=== PATIENT | female | born 1935 | race Caucasian/White ===

== ENCOUNTER → 2016-11-20 | Outpatient (CLI) | payer MEDICARE ==
[~2016-11-20] MED LIST: ALIS1TAB PO; ATEN50TA41 PO; ENAL10TA PO; EZET10TA3 PO; OMEG1CAP2 PO
== END | disposition home or self-care (01) ==
LOC: RAD 13:42 → EDSTATUS 13:45
PROVIDERS: ATTEND Physical Medicine & Rehabilitation
DX: M51.36 Other intervertebral disc degeneration, lumbar region (principal); M12.88 Other specific arthropathies, not elsewhere classified, other specified site; M48.07 Spinal stenosis, lumbosacral region
CPT/HCPCS: 72148

== ENCOUNTER 2018-01-05 16:40 | Emergency (ER) | payer MEDICARE ==
[~2018-01-05] VITALS: Ht 165.1 cm; Wt 74.9 kg
[~2018-01-05 16:40] MED LIST changes: +ASPI-515 PO; +CHOL400C PO; +EZET10TA18 PO; -EZET10TA3 PO; +PANT40TA5 PO; +SPIR25TA5 PO
[2018-01-05] MEDS ORDERED: SODIUM CHLORIDE FLUSH 10ML SYR IVF ONE (17:00)
[2018-01-05 18:25] LABS: BASOPHILS # (AUTO) 0.03 x10^3/uL (0-0.1); BASOPHILS % (AUTO) 1 % (0-1); EOSINOPHILS # (AUTO) 0.09 x10^3/uL (0-0.4); EOSINOPHILS % (AUTO) 2 % (1-7); LYMPHOCYTES # (AUTO) 1.68 x10^3/uL (1-3.4); LYMPHOCYTES % (AUTO) 32 % (22-44); MD NO; MEAN CORPUSCULAR HEMOGLOBIN 31.7 pg (27.0-34.8); MEAN CORPUSCULAR HGB CONC 33.5 g/dL (32.4-35.8); MEAN CORPUSCULAR VOLUME 94.4 fL (80-100); MEAN PLATELET VOLUME 7.5 fL (7.4-10.4); MONOCYTES # (AUTO) 0.31 x10^3/uL (0.2-0.8); MONOCYTES % (AUTO) 6 % (2-9); NEUTROPHILS # (AUTO) 3.22 x10^3/uL (1.8-6.8); NEUTROPHILS % (AUTO) 60 % (42-75); PLATELET COUNT 189 x10^3/uL (130-400); RED BLOOD COUNT 4.16 x10^6/uL (3.82-5.3); RED CELL DISTRIBUTION WIDTH 12.9 % (9.6-15.2)
[2018-01-05 18:28] LABS: ALBUMIN 3.8 g/dL (3.4-5.0); ANION GAP 8 mmol/L (5-15); CALCIUM 8.8 mg/dL (8.5-10.1); CHLORIDE 99 mmol/L (98-107); CREATININE 0.46 mg/dL (0.55-1.02)
[2018-01-05 18:33] LABS: TROPONIN I < 0.015 ng/mL (0.000-0.045)
[2018-01-05] MEDS ORDERED: LABETALOL 5MG/ML, 20ML IVPush ONE (19:00)
[2018-01-05] MEDS ORDERED: ACETAMINOPHEN 500 MG TABLET PO ONE (19:00)
[2018-01-05] MEDS ORDERED: PROCHLORPERAZINE 5 MG/ML, 2ML IVPush ONE (19:00)
[2018-01-05] MEDS ORDERED: LABETALOL 5MG/ML, 20ML ONE (19:03)
[2018-01-05] MEDS ORDERED: PROCHLORPERAZINE 5 MG/ML, 2ML ONE (19:03)
[2018-01-05] MEDS ORDERED: ACETAMINOPHEN 500 MG TABLET ONE (19:03)
[2018-01-05 21:09] VITALS: BP 188/79
== END 2018-01-05 21:17 | disposition home or self-care (01) ==
LOC: ED 21:09
DX: I16.9 Hypertensive crisis, unspecified (principal); R51 Headache
CPT/HCPCS: 36415; 71046; 80048; 82040; 83880; 84484; 85025; 93005; 96374; 96375; 99285; J0780

== ENCOUNTER 2018-08-25 16:26 | Inpatient (IN) | payer MEDICARE ==
[~2018-08-25] VITALS: Ht 165.1 cm; Wt 85.6 kg
--- NOTE | 2018-08-25 17:00 | NUR ---
LAB UNABLE TO OBTAIN NON HEMOLYZED SAMPLE. BASKETBALL REFEREE TO DRAW W/ IV PLACEMENT SHORTLY
--- NOTE | 2018-08-25 17:29 | NUR ---
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 REPORTS FEELING MORE FATIGUED/INCREASING RIGHT HIP PAIN. FOUND TO BE IN AFIB BY PCP AND SENT HERE. ALERT/ORIENT W/ GOOD ENERGY. HR NOTED TO BE 115-150. BP 176/99. DENIES SOB. NO BLOOD THINNER/NEVER BEEN IN AN ARRYTHMIA BEFORE. LINE PLACED TO GIVE DILT DOSE SHORTLY
[2018-08-25] MEDS ORDERED: DILTIAZEM 5 MG/ML, 5ML IVPush ONE (17:30)
[2018-08-25] MEDS ORDERED: DILTIAZEM 5 MG/ML, 10ML ONE (17:42)
[2018-08-25 17:43] LABS: BASOPHILS # (AUTO) 0.03 x10^3/uL (0-0.1); BASOPHILS % (AUTO) 1 % (0-1); EOSINOPHILS # (AUTO) 0.13 x10^3/uL (0-0.4); EOSINOPHILS % (AUTO) 3 % (1-7); LYMPHOCYTES # (AUTO) 1.35 x10^3/uL (1-3.4); LYMPHOCYTES % (AUTO) 29 % (22-44); MD NO; MEAN CORPUSCULAR HEMOGLOBIN 28.2 pg (27.0-34.8); MEAN CORPUSCULAR HGB CONC 32.2 g/dL (32.4-35.8); MEAN CORPUSCULAR VOLUME 87.6 fL (80-100); MEAN PLATELET VOLUME 8.5 fL (7.4-10.4); MONOCYTES # (AUTO) 0.31 x10^3/uL (0.2-0.8); MONOCYTES % (AUTO) 7 % (2-9); NEUTROPHILS # (AUTO) 2.79 x10^3/uL (1.8-6.8); NEUTROPHILS % (AUTO) 60 % (42-75); PLATELET COUNT 184 x10^3/uL (130-400); RED BLOOD COUNT 4.18 x10^6/uL (3.82-5.3); RED CELL DISTRIBUTION WIDTH 15.3 % (9.6-15.2)
[2018-08-25 17:52] LABS: ALBUMIN 3.8 g/dL (3.4-5.0); ANION GAP 7 mmol/L (5-15); CALCIUM 8.8 mg/dL (8.5-10.1); CHLORIDE 105 mmol/L (98-107)
--- NOTE | 2018-08-25 17:54 | NUR ---
IMMEDIATE RESOLUTION IN VENTRICULAR RATE FROM DILTAZEM, HR 55-76, BP 110/60
[2018-08-25 17:59] LABS: ALANINE AMINOTRANSFERASE 16 U/L (12-78); ALKALINE PHOSPHATASE 68 U/L (45-117); BILIRUBIN,TOTAL 0.5 mg/dL (0.2-1.0); CREATININE 0.57 mg/dL (0.55-1.02); TOTAL PROTEIN 6.9 g/dL (6.4-8.2); TROPONIN I < 0.015 ng/mL (0.000-0.045)
[2018-08-25] MEDS ORDERED: METO50TA4 PO (18:07)
[2018-08-25] MEDS ORDERED: METO25TA91 PO (18:07)
[2018-08-25] MEDS ORDERED: ROSU5TAB PO ×2 (18:07→18:49)
[2018-08-25] MEDS ORDERED: ATOR10TA9 PO (18:07)
[2018-08-25] MEDS ORDERED: LEVO75TA PO (18:07)
[2018-08-25 18:49] LABS: CULTURE INDICATED? YES; MICROSCOPIC INDICATED
--- NOTE | 2018-08-25 18:55 | NUR ---
REPEAT ECG OBTAINED 367J
--- NOTE | 2018-08-25 19:02 | NUR ---
PATIENT REMAINS OUT OF AFIB, BP 116/75, HR 58. UP Walking down morrison to restroom without difficulty. hospitalist at bedside. Moved onto hospital bed. call godfrey in hand/side rails up. placed in hospital socks. remains on monitor
[2018-08-25] MEDS ORDERED: DILTIAZEM 5 MG/ML, 5ML IVPush PRN (19:30)
[2018-08-25] MEDS ORDERED: ONDANSETRON 2MG/ML, 2ML IVPush PRN (19:30)
[2018-08-25 19:58] LABS: FREE T4 (FREE THYROXINE) 1.3 ng/dL (0.76-1.46); THYROID STIMULATING HORMONE 1.58 mIU/L (0.358-3.740)
[2018-08-25] MEDS ORDERED: CEFTRIAXONE PMX 1GM/50ML 50 ML IV SCH (20:00)
--- NOTE | 2018-08-25 20:17 | NUR ---
PATIENT REMAIN IN VENTRICULAR SINUS RHYTHM, MULTIPLE P WAVES STILL NOTES (HR 50-70), BP WNL. HAS NEEDED TO VOID 3 TIMES IN THE LAST HOUR. HAS BEEN AMBULATING DOWN THE [place]ITT WITH WALKER TO RESTROOM WITHOUT ANY TROUBLE. ON TOLL COLLECTOR, IN HOSPITAL BED WITH CALL PAREDES IN HAND. sON AT BEDSIDE. UPDATED ON POC. TO ADMINISTER ABX SHORTLY
[2018-08-25] MEDS ORDERED: ENOXAPARIN 80 MG/0.8 ML ONE (20:21)
[2018-08-25] MEDS ORDERED: CEFTRIAXONE PMX 1GM/50ML 50 ML ONE (20:22)
[2018-08-25] MEDS: ENOXAPARIN 80 MG/0.8 ML SQ SCH (20:29)
[2018-08-25] MEDS ORDERED: ACETAMINOPHEN 325 MG TABLET PO PRN (21:00)
--- NOTE | 2018-08-25 21:18 | NUR ---
pt ambulated to , now rest on gurney, monitors in place, siderails up x2, call light within reach. pt denies needs at this time, awaiting room for transfer at this time
[2018-08-25 22:31] VITALS: BP 167/80
[2018-08-25 23:28] VITALS: BP 135/84
[2018-08-25] MEDS ORDERED: hydrALAzine 20 MG/ML, 1ML IV PRN (23:30)
[2018-08-25] MEDS ORDERED: MAGNESIUM SULFATE PMX 2GM/50ML 50 ML IV ONE (23:30)
[2018-08-26 00:31] VITALS: BP 131/78
[2018-08-26 05:56] VITALS: BP 133/84
[2018-08-26 06:00] LABS: BASOPHILS # (AUTO) 0.04 x10^3/uL (0-0.1); BASOPHILS % (AUTO) 1 % (0-1); EOSINOPHILS # (AUTO) 0.16 x10^3/uL (0-0.4); EOSINOPHILS % (AUTO) 4 % (1-7); LYMPHOCYTES # (AUTO) 1.81 x10^3/uL (1-3.4); LYMPHOCYTES % (AUTO) 43 % (22-44); MD NO; MEAN CORPUSCULAR HEMOGLOBIN 29.7 pg (27.0-34.8); MEAN CORPUSCULAR HGB CONC 34.1 g/dL (32.4-35.8); MEAN CORPUSCULAR VOLUME 87.2 fL (80-100); MEAN PLATELET VOLUME 8.4 fL (7.4-10.4); MONOCYTES # (AUTO) 0.39 x10^3/uL (0.2-0.8); MONOCYTES % (AUTO) 9 % (2-9); NEUTROPHILS # (AUTO) 1.82 x10^3/uL (1.8-6.8); NEUTROPHILS % (AUTO) 43 % (42-75); PLATELET COUNT 164 x10^3/uL (130-400); RED BLOOD COUNT 3.94 x10^6/uL (3.82-5.3); RED CELL DISTRIBUTION WIDTH 15.2 % (9.6-15.2)
[2018-08-26] MEDS ORDERED: MAGNESIUM SULFATE 1 GM in SODIUM CHLORIDE 0.9% 50 ML IV ONE (06:00)
[2018-08-26] MEDS ORDERED: LEVOTHYROXINE 75 MCG TABLET PO SCH (06:00)
[2018-08-26] MEDS ORDERED: PANTOPROZOLE 40MG TABLET PO SCH (06:00)
[2018-08-26] MEDS ORDERED: METOPROLOL TARTRATE 25 MG TABLET PO SCH (06:00)
[2018-08-26 06:08] LABS: CHLORIDE 106 mmol/L (98-107)
[2018-08-26 06:09] LABS: ANION GAP 6 mmol/L (5-15); CALCIUM 8.9 mg/dL (8.5-10.1); CREATININE 0.49 mg/dL (0.55-1.02)
[2018-08-26 06:43] VITALS: BP 129/69
[2018-08-26] MEDS: ENOXAPARIN 80 MG/0.8 ML SQ SCH (07:59)
[2018-08-26] MEDS ORDERED: EZETIMIBE 10 MG TABLET PO SCH (09:00)
[2018-08-26] MEDS ORDERED: ASPIRIN 81 MG TABLET EC PO SCH (09:00)
[2018-08-26] MEDS ORDERED: METOPROLOL SUCCINATE 50 MG TAB.ER.24H PO SCH (09:00)
[2018-08-26 11:55] VITALS: BP 144/85
[2018-08-26] MEDS ORDERED: OMNIPAQUE 350 MG/ML, 100ML BOTTLE ONE (11:58)
[2018-08-26 12:14] VITALS: BP 123/85
[2018-08-26] MEDS ORDERED: CEFP100T PO (13:59)
[2018-08-26] MEDS ORDERED: METO25TA35 PO (13:59)
[2018-08-26] MEDS ORDERED: RIVA20TA PO (13:59)
== END 2018-08-26 15:30 | disposition home or self-care (01) | DRG 309 ==
LOC: ED 18:23 → EDIP 18:30 → 5SO 22:12 → DCLOUNGE 08-26 15:10
PROVIDERS: ADMIT Family Medicine; ATTEND Family Medicine
DX: I48.91 Unspecified atrial fibrillation (principal); N39.0 Urinary tract infection, site not specified; E03.9 Hypothyroidism, unspecified; E78.00 Pure hypercholesterolemia, unspecified; G89.29 Other chronic pain; E78.5 Hyperlipidemia, unspecified; M19.90 Unspecified osteoarthritis, unspecified site; I10 Essential (primary) hypertension; K44.9 Diaphragmatic hernia without obstruction or gangrene; Z96.653 Presence of artificial knee joint, bilateral; Z96.612 Presence of left artificial shoulder joint; Z96.611 Presence of right artificial shoulder joint; Z90.49 Acquired absence of other specified parts of digestive tract; Z79.82 Long term (current) use of aspirin; Z88.8 Allergy status to other drugs, medicaments and biological substances; Z88.5 Allergy status to narcotic agent; Z86.73 Personal history of transient ischemic attack (TIA), and cerebral infarction without residual deficits; Z80.49 Family history of malignant neoplasm of other genital organs
CPT/HCPCS: 36415; 71045; 71275; 80048; 80053; 81001; 83735; 83880; 84439; 84443; 84484; 85025; 85379; 87077; 87086; 87186; 93005; 93306; 96374; 96375; 99291; G0378; J0696; J1650; Q9967; J3475

== ENCOUNTER 2018-11-04 12:53 | Outpatient (CLI) | payer MEDICARE ==
[~2018-11-04 12:53] MED LIST changes: +ATOR10TA9 PO; +CEFP100T PO; +LEVO75TA PO; +METO25TA35 PO; +METO25TA91 PO; +METO50TA4 PO; +REGADENOSON 0.4 MG/5 ML SYRINGE ONE; +RIVA20TA PO; +ROSU5TAB PO
== END 2018-11-04 23:59 | disposition home or self-care (01) ==
LOC: CFH 12:53
PROVIDERS: ATTEND Internal Medicine Cardiovascular Disease
DX: Z01.810 Encounter for preprocedural cardiovascular examination (principal); I34.0 Nonrheumatic mitral (valve) insufficiency
CPT/HCPCS: 78452; 93017; A9502; J2785

== ENCOUNTER 2019-06-15 13:46 | Outpatient (CLI) | payer MEDICARE ==
[~2019-06-15 13:46] MED LIST changes: -EZET10TA18 PO; +EZET10TA70 PO; -REGADENOSON 0.4 MG/5 ML SYRINGE ONE
== END 2019-06-15 23:59 | disposition home or self-care (01) ==
LOC: CFH 13:46
PROVIDERS: ATTEND Internal Medicine Cardiovascular Disease
DX: I08.8 Other rheumatic multiple valve diseases (principal); I10 Essential (primary) hypertension; E78.5 Hyperlipidemia, unspecified; Z86.73 Personal history of transient ischemic attack (TIA), and cerebral infarction without residual deficits
CPT/HCPCS: 93306

== ENCOUNTER → 2020-03-29 | Outpatient (CLI) | payer MEDICARE ==
[~2020-03-29] MED LIST changes: +CHOL20009 PO; -ENAL10TA PO; +ENAL10TA9 PO; +FURO20TA3 PO; +METO50TA82 PO; -PANT40TA5 PO; +PANT40TA6 PO; +POTA20TA89 PO
== END | disposition home or self-care (01) ==
LOC: STAR 14:43
PROVIDERS: ATTEND Anesthesiology
DX: Z01.812 Encounter for preprocedural laboratory examination (principal); Z20.828 Contact with and (suspected) exposure to other viral communicable diseases
CPT/HCPCS: 36415; 87635

== ENCOUNTER → 2020-07-31 | Outpatient (CLI) | payer MEDICARE ==
[~2020-07-31] MED LIST changes: -ASPI-515 PO; +ASPI-963 PO; +CEFD300C37 PO; +DEXA4TAB PO; +DOXY100C2 PO; +FURO40TA6 PO; +HYDR2TAB29 PO; +METO-93 PO; +TIZA2CAP2 PO
== END | disposition home or self-care (01) ==
LOC: CFH 16:02
PROVIDERS: ATTEND Internal Medicine Cardiovascular Disease
DX: I08.8 Other rheumatic multiple valve diseases (principal); I50.33 Acute on chronic diastolic (congestive) heart failure; I11.0 Hypertensive heart disease with heart failure; I48.91 Unspecified atrial fibrillation; Z86.73 Personal history of transient ischemic attack (TIA), and cerebral infarction without residual deficits
CPT/HCPCS: 93306